=== PATIENT | male | born 2005 | race Two or more races ===

== ENCOUNTER 2025-02-07 20:52 | Emergency (ER) | payer OTHER ==
[2025-02-07] MEDS ORDERED: Acetaminophen 500 MG TAB ONE (21:59)
[2025-02-07 22:50] LABS: Bacteria/HPF None Seen HPF (None Seen); CAUTI Indications for Culture Pelvic or flank pain; Glucose, Urine (Dipstick) Normal (Negative); Leukocyte Negative Leu/uL (Negative); Protein, Urine (Dipstick) Negative (Neg-Trace); RBC/HPF None Seen HPF (0-3); Specific Gravity, Urine 1.012 (1.002-1.036); WBC/HPF 0-3 HPF (0-3)
[2025-02-07 22:58] LABS: Urine Culture Reflex No No
== END 2025-02-08 00:18 | disposition home or self-care (01) ==
LOC: ERS 20:52
DX: I86.1 Scrotal varices (principal); N43.3 Hydrocele, unspecified
CPT/HCPCS: 76870; 81001; 93976